=== PATIENT | female | born 1965 | race Caucasian/White ===

== ENCOUNTER → 2019-03-17 17:21 | Outpatient (CLI) | payer OTHER, SELFPAY ==
--- NOTE | 2019-03-17 | DI.MG.S_ITS ---
BILATERAL DIGITAL SCREENING MAMMOGRAM 3D/2D WITH CAD: 03/17/2019 CLINICAL: Routine screening. Family history of breast cancer. Comparison is made to exams dated: 12/28/2015 mammogram, 12/26/2016 mammogram, and 02/26/2018 mammogram - [facility]. The tissue of both breasts is heterogeneously dense. This may lower the sensitivity of mammography. Current study was also evaluated with a Computer Aided Detection (CAD) system. There is an oval focal asymmetry in the left breast at 1 o'clock posterior depth. No other significant masses, calcifications, or other findings are seen in either breast. IMPRESSION: INCOMPLETE: NEEDS ADDITIONAL IMAGING EVALUATION The oval focal asymmetry in the left breast likely represents a cyst and is indeterminate. Additional views with possible ultrasound are recommended. This exam was interpreted at Station ID: [id number]. NOTE: For mammograms, a report in lay terms will be sent to the patient. Approximately 15% of breast malignancies will not be visualized mammographically. In the management of a palpable breast mass, a negative mammogram must not discourage biopsy of a clinically suspicious lesion. Electronically Signed By: Talia Phillips M.D. lk/:03/18/2019 08:55:49 letter sent: Additional Imaging Needed ACR BI-RADS Category 0: Incomplete [id number]
== END ==
DX: Z12.31 Encounter for screening mammogram for malignant neoplasm of breast (principal); Z80.3 Family history of malignant neoplasm of breast
CPT/HCPCS: 77063; 77067

== ENCOUNTER → 2019-04-09 14:06 | Outpatient (CLI) | payer OTHER, SELFPAY ==
--- NOTE | 2019-04-09 | DI.MG.S_ITS ---
UNILATERAL LEFT DIGITAL DIAGNOSTIC MAMMOGRAM 3D/2D WITH ADDITIONAL VIEWS: 04/09/2019 CLINICAL: Additional evaluation requested from prior study. Comparison is made to exams dated: 03/17/2019 mammogram - [facility], 02/26/2018 mammogram, and 12/26/2016 mammogram - [facility]. The tissue of left breast is heterogeneously dense. This may lower the sensitivity of mammography. There is a 1.5 cm oval low density mass with an obscured and circumscribed margin in the left breast at 2 o'clock middle depth. No other significant masses or calcifications are seen in the breast. IMPRESSION: INCOMPLETE: NEEDS ADDITIONAL IMAGING EVALUATION The 1.5 cm oval low density mass in the left breast is indeterminate. An ultrasound is recommended. This exam was interpreted at Station ID: [id number]. NOTE: For mammograms, a report in lay terms will be sent to the patient. Approximately 15% of breast malignancies will not be visualized mammographically. In the management of a palpable breast mass, a negative mammogram must not discourage biopsy of a clinically suspicious lesion. Electronically Signed By: Christian boo/magali:04/09/2019 14:46:08 ACR BI-RADS Category 0: Incomplete [id number]
--- NOTE | 2019-04-09 14:12 | DI.US.S_ITS ---
LIMITED ULTRASOUND OF LEFT BREAST AND AXILLA: 04/09/2019 CLINICAL: Patient returns today to evaluate a density in the left breast. Comparison is made to exams dated: 04/09/2019 mammogram, 03/17/2019 mammogram - [facility], 02/26/2018 mammogram, 12/26/2016 mammogram, and 12/28/2015 mammogram - [facility]. Color flow and real-time ultrasound of the left breast 1-2 o'clock, and axilla regions were performed on the areas of interest. There is a 1.1 cm x 0.7 cm x 1.4 cm oval cyst in the left breast at 1 o'clock posterior depth. This oval cyst is hypoechoic with internal echoes and a fluid-debris level. This correlates with mammography findings. Color flow imaging demonstrates that there is no vascularity present. No significant abnormalities were seen sonographically in the left axilla. IMPRESSION: PROBABLY BENIGN The 1.1 cm x 0.7 cm x 1.4 cm oval cyst in the left breast is consistent with a complicated cyst and is probably benign. A follow-up ultrasound in 6 months is recommended. A follow-up ultrasound in 6 months is recommended to demonstrate stability. This exam was interpreted at Station ID: [id number]. Electronically Signed By: Christian boo/:04/09/2019 15:26:24 letter sent: Followup Recommended Ultrasound BI-RADS: 3 Probably benign
== END ==
PROVIDERS: PCP Nurse Practitioner Family; Visit Provider Family Medicine
DX: R92.8 Other abnormal and inconclusive findings on diagnostic imaging of breast (principal); N60.02 Solitary cyst of left breast
CPT/HCPCS: 76642; 77065; G0279

== ENCOUNTER → 2019-10-15 10:45 | Outpatient (CLI) | payer OTHER, SELFPAY ==
--- NOTE | 2019-10-15 10:46 | DI.US.S_ITS ---
LIMITED ULTRASOUND OF LEFT BREAST: 10/15/2019 CLINICAL: 6 month follow-up of cysts. Comparison is made to exams dated: 04/09/2019 ultrasound, 04/09/2019 mammogram, 03/17/2019 mammogram - [facility], 02/26/2018 mammogram, and 12/26/2016 mammogram - [facility]. Real-time and Doppler ultrasound of the left breast 1-2 o'clock region were performed on the areas of interest. Ward scale images of the real-time examination were reviewed. There is a 1.5 cm x 0.8 cm x 1.2 cm oval cyst in the left breast at 1 o'clock middle depth. This oval cyst is hypoechoic with internal echoes and posterior acoustic enhancement. This abnormality is not significantly changed and correlates with mammography findings. Color flow imaging demonstrates that there is no vascularity present. IMPRESSION: PROBABLY BENIGN The 1.5 cm x 0.8 cm x 1.2 cm oval cyst in the left breast is consistent with a complicated cyst and is probably benign. Follow-up ultrasound in 6 months is recommended. A follow-up ultrasound in 6 months is recommended to demonstrate stability. Patient will also be due for followup mammography at that time. This exam was interpreted at Station ID: [id number]. Electronically Signed By: Christian boo/:10/15/2019 11:22:53 letter sent: Followup Recommended Ultrasound BI-RADS: 3 Probably benign
== END ==
PROVIDERS: PCP Nurse Practitioner Family; Referring Provider Nurse Practitioner Family; Visit Provider Nurse Practitioner Family
DX: R92.8 Other abnormal and inconclusive findings on diagnostic imaging of breast (principal); N60.02 Solitary cyst of left breast
CPT/HCPCS: 76642

== ENCOUNTER → 2019-12-04 07:34 | Outpatient (CLI) | payer OTHER, SELFPAY ==
[2019-12-04 08:05] LABS: Hemoglobin 13.4 g/dL (12.0-16.0); Mean Corpuscular HGB Conc 33.5 % (30-36); Mean Corpuscular Hemoglobin 31.5 PG (26-34); Mean Corpuscular Volume 94.2 fL (80-100); Platelet Count 198 X10^3/uL (150-400); Red Blood Cell Count 4.25 X10^6/uL (4.0-5.2); White Blood Cell Count 5.5 X10^3/uL (4.5-11.0)
[2019-12-04 08:15] LABS: Alanine Aminotransferase 34 IU/L (<35); Albumin 4.5 g/dL (3.5-5.0); Albumin Globulin Ratio 1.7 (1.0-2.8); Alkaline Phosphatase 73 U/L (38-126); Aspartate Aminotransferase 37 IU/L (14-36); BUN Creatinine Ratio 26.5 (6-22); Bilirubin Total 0.7 mg/dL (0.2-1.3); Blood Urea Nitrogen 18 mg/dL (7-17); Calcium 9.4 mg/dL (8.4-10.2); Carbon Dioxide 27 mmol/L (22-32); Chloride 105 mmol/L (98-107); Cholesterol 248 mg/dL (140-199); Estimated Glomerular Filt Rate > 60.0 mL/min (>60); Globulin 2.7 g/dL (1.7-4.1); Glucose 106 mg/dL (70-100); HDL Cholesterol 58 mg/dL (40-60); HEMOLYSIS < 15 (0-50); LDL Cholesterol Calculated 160 mg/dL (<100); Potassium 4.1 mmol/L (3.4-5.1); Sodium 138 mmol/L (137-145); Total Protein 7.2 g/dL (6.3-8.2); Triglycerides 150 mg/dL (35-150)
[2019-12-04 09:04] LABS: Thyroid Stimulating Hormone 0.978 uIU/mL (0.47-4.68)
== END ==
PROVIDERS: PCP Nurse Practitioner Family; Referring Provider Nurse Practitioner Family; Visit Provider Nurse Practitioner Family
DX: Z00.00 Encounter for general adult medical examination without abnormal findings (principal); Z13.6 Encounter for screening for cardiovascular disorders; E03.9 Hypothyroidism, unspecified
CPT/HCPCS: 36415; 80053; 80061; 84439; 84443; 85027

== ENCOUNTER → 2020-02-25 09:52 | Outpatient (CLI) | payer OTHER, SELFPAY ==
[2020-02-25 10:22] LABS: Add Manual Diff / Slide Review NO; Basophils Absolute Auto 0 /uL (0-100); Basophils Percent Auto 0.2 % (0-2); Eosinophils Absolute Auto 100 /uL (0-450); Hematocrit 41.9 % (36-46); Hemoglobin 14.2 g/dL (12.0-16.0); Lymphocytes Absolute Auto 1300 /uL (1100-4500); Lymphocytes Percent Auto 21.7 % (25-40); Mean Corpuscular Hemoglobin 31.8 PG (26-34); Mean Corpuscular Volume 93.6 fL (80-100); Monocytes Absolute Auto 600 /uL (0-900); Monocytes Percent Auto 9.7 % (3-14); Neutrophils Absolute Auto 4000 /uL (1500-7000); Neutrophils Percent Auto 66.4 % (50-75); Platelet Count 194 X10^3/uL (150-400); Red Blood Cell Count 4.48 X10^6/uL (4.0-5.2); Red Cell Distribution Width 14.1 % (11.6-14.8)
[2020-02-25 10:57] LABS: Alanine Aminotransferase 47 IU/L (<35); Albumin 4.5 g/dL (3.5-5.0); Albumin Globulin Ratio 1.6 (1.0-2.8); Alkaline Phosphatase 81 U/L (38-126); Aspartate Aminotransferase 43 IU/L (14-36); BUN Creatinine Ratio 22.2 (6-22); Bilirubin Total 0.6 mg/dL (0.2-1.3); Blood Urea Nitrogen 16 mg/dL (7-17); Calcium 9.5 mg/dL (8.4-10.2); Carbon Dioxide 32 mmol/L (22-32); Chloride 102 mmol/L (98-107); Estimated Glomerular Filt Rate > 60.0 mL/min (>60); Globulin 2.9 g/dL (1.7-4.1); Glucose 99 mg/dL (70-100); HEMOLYSIS < 15 (0-50); Potassium 4.3 mmol/L (3.4-5.1); Sodium 138 mmol/L (137-145); Total Protein 7.4 g/dL (6.3-8.2)
[2020-02-25 11:27] LABS: Thyroid Stimulating Hormone 0.739 uIU/mL (0.47-4.68)
== END ==
PROVIDERS: PCP Nurse Practitioner Family; Referring Provider Nurse Practitioner Family; Visit Provider Nurse Practitioner Family
DX: Z01.818 Encounter for other preprocedural examination (principal); E03.9 Hypothyroidism, unspecified
CPT/HCPCS: 36415; 80053; 84443; 85025

== ENCOUNTER → 2020-04-03 08:52 | Outpatient (CLI) | payer OTHER, SELFPAY ==
[2020-04-04 20:14] LABS: COVID19 Sendout Not Detected (Not Detect)
== END ==
PROVIDERS: PCP Nurse Practitioner Family; Visit Provider Physician Assistant
DX: Z11.59 Encounter for screening for other viral diseases (principal)
CPT/HCPCS: 87635

== ENCOUNTER 2020-04-06 06:21 | Day surgery (SDC) | payer OTHER, SELFPAY ==
[2020-03-30 08:35] VITALS: BMI 31.7
[2020-04-06] VITALS (16 sets, daily range): BP systolic 106–150; BP diastolic 59–87; PULSE 65–85; RESP 10–20; TEMP 35.9–36.8; O2SAT 93–100; BMI 31.7; BMI 34.5
--- NOTE | 2020-04-06 06:00 | DI.RAD.S_ITS ---
PROCEDURE: XR KNEE RT 1TO2V INDICATIONS: post operative films TECHNIQUE: 2 view(s) of the knee acquired. COMPARISON: None. FINDINGS: Bones: Patient is status post knee joint arthroplasty. Hardware components are in expected positions. Visualized bony structures are intact. Soft tissues: Overlying postoperative changes are noted. IMPRESSION: Normal alignment after right total knee arthroplasty. Dictated by: Juwan Gupta M.D. on 04/06/2020 at 10:30 Approved by: Juwan Gupta M.D. on 04/06/2020 at 10:30
[2020-04-06] MEDS: LACTATED RINGERS 1,000 ML 42 ML IV (06:58)
[2020-04-06] MEDS: ACETAMINOPHEN 325 MG TABLET 975 MG PO (07:14)
[2020-04-06] MEDS: PREGABALIN 75 MG CAPSULE PO (07:17)
--- NOTE | 2020-04-06 07:40 | PM.PREOP ---
Pre-operative Note COVID-19 COVID-19 status: Negative Result date/Date tested (Pos, Neg/Pending): 04/04/20 Interval Note History & Physical reviewed/Exam performed by Physician: Yes Changes to H&P: No
--- NOTE | 2020-04-06 07:41 | PM.OP.1 ---
Operative Date/Time/Diagnoses Date of procedure: 04/06/20 Time of procedure: 09:25 Pre-op diagnosis: Right knee osteoarthritis Post-op diagnosis: same Procedure & Clinicians Procedure: Right total knee arthroplasty Same procedure as scheduled: Yes Indications: The patient presents today for total knee arthroplasty after failure of conservative treatment. The nature of the procedure including the risks and benefits, alternatives, postoperative course and expected outcome were discussed and all questions answered. Consent was obtained. Operative site confirmed and marked. Surgeon: Christian Murillo [employer] Operator: Vasquez Garcia Anesthesia Type: General and Local Operative Notes Closure Type: primary Specimen(s): none sent Prosthetic devices, grafts, tissues, transplants, or devices: Duggan and Nephew Sera BCS: 5 femoral component, 4 tibial component, 10 mm BCS polyethylene tray and 35 x 7.5 mm round patella Applied: implant(s) Estimated Blood Loss (mL): 5 Blood products transfused: none Tourniquet time (min): 58 Procedure in detail: The patient was taken to the operative suite and placed under anesthesia. The patient was given prophylactic antibiotics prior to surgery. The patient was also given tranexamic acid, 1 g, just prior to surgery for postoperative hemostasis. The lateral knee was prepped and the joint injected with 20 mL of 1% Lidocaine with epinephrine. The knee was then prepped and draped in usual sterile fashion. The leg was exsanguinated with an Esmarch dressing and the tourniquet raised to 250 torr. A 15 cm anterior incision was made. Next a medial trivector arthrotomy was made. The extensor mechanism was marked to ensure accurate repair. Initial exposing dissection was carried out medially and laterally. The knee was then flexed and the intramedullary femoral guide xochilt placed. The distal femoral cut was made in 6? of valgus at the +1 position. The femoral size was measured and the appropriate cutting block was then placed and the anterior, posterior and chamfer cuts made. The intramedullary tibial alignment xochilt was then placed. The guide was set to remove approximately 10 mm from the less affected lateral side. The proximal tibial cut was then made with an oscillating saw. All meniscus and bony debris was then removed. Posterior femoral osteophytes removed with a curved osteotome. Flexion extension gaps were checked. There is mild tightness medially which was corrected with percutaneous release of the MCL with an 18 gauge needle. The soft tissues were then injected with a combination of 20 mL of half percent Marcaine with epinephrine and 20 mL of Exparel. The trial components were then placed. The knee was then extended and the patellar thickness was measured and a cut made removing approximately 9 mm of bone. The patella was then sized and drilled. Some excess lateral bone was excised and the patellofemoral ligament released. The knee went into full extension and flexion beyond 130?. There was good medial-lateral balance throughout motion with just slight increased laxity laterally. Patellar tracking was excellent. The trial components were removed and the knee was cleansed with Pulsavac irrigation and dried. The final components were cemented with high viscosity vacuum mixed bone cement with antibiotics. The joint was filled with a dilute Betadine solution. The knee was held in extension and the patellar clamped until the cement was adequately cured. The knee was then irrigated. The extensor mechanism was closed with 5 interrupted #1 Vicryl sutures and a running Quill suture at approximately 90 degrees of flexion. The joint was then injected with a combination of 1 g of tranexamic acid and 20 mL of quarter percent Marcaine with epinephrine. The subcutaneous tissue was closed with 2 0 Vicryl. The skin was closed with absorbable subcuticular sutures and surgical adhesive. An Aquacel dressing and Bhupinder wrap were then applied. The patient tolerated the procedure well and was returned to recovery room in good condition. Post-operative Condition: stable Disposition: PACU Plan for aftercare: [facility] Protocol.
[2020-04-06] MEDS: CEFAZOLIN 2 GM/100 ML FROZ.PIGGY IV ×3 (07:55→23:43)
--- NOTE | 2020-04-06 08:24 | SUR.OPER ---
Supine on padded OR bed. Pillow under head, arms secured on padded armboards <90 degree abduction. Safety belt across torso. Non-operative leg secured with tape over blanket over lower leg. Operative leg secured in DeMayo/Ramiro positioner. Foam padded brace at thigh of operative leg.
[2020-04-06] MEDS: BUPIVACAINE 0.25% W/ EPI (PF) 40 ML, BUPIVACAINE LIPOSOME 266 MG, SODIUM CHLORIDE 0.9% ... INJ (08:37)
[2020-04-06] MEDS: BUPIVACAINE 0.25% W/ EPI (PF) 20 ML, TRANEXAMIC ACID 1,000 MG, SODIUM CHLORIDE 0.9% 10 ML INJ (08:39)
[2020-04-06] MEDS: SODIUM CHLORIDE IRRIG SOLUTION 250 ML, POVIDONE-IODINE SPONGE STICKS 1 APPLIC IRR (08:41)
[2020-04-06] MEDS: LIDOCAINE 1% W/EPI 20 ML INJ (08:43)
[2020-04-06] MEDS: HYDROMORPHONE 2 MG INJ IV ×2 (09:51→10:09)
[2020-04-06] MEDS: hydrOXYzine 50 MG/ML INJ 25 MG IM (09:56)
[2020-04-06] MEDS: OXYCODONE IR 5 MG TABLET PO ×3 (09:58→20:48)
--- NOTE | 2020-04-06 10:20 | SUR.PHASEI ---
0939 Received to PACU after general/spinal anesthesia. Airway patent, self maintained. Report from JOHANNE Ochoa and Dr Osorio. 1020 - , Ray, updated on status and room assignment of 217.
--- NOTE | 2020-04-06 10:51 | SUR.PHASEI ---
Pt transferred to room 217. Belongings bag with pt. Received in room by JOHANNE Fournier. Bedside handoff done.
[2020-04-06] MEDS: LACTATED RINGERS 1,000 ML 100 ML IV ×2 (11:46→20:50)
[2020-04-06] MEDS: IBUPROFEN 400 MG TABLET PO ×4 (12:31→23:42)
[2020-04-06] MEDS: ACETAMINOPHEN 325 MG TABLET 650 MG PO ×2 (15:58→20:48)
--- NOTE | 2020-04-06 16:58 | PT.IIE ---
Current Diagnoses Unilateral primary osteoarthritis, right knee (04/06/20) Surgery Performed Operation Date: 04/06/20 07:45 Actual Procedures p Total Knee Arthroplasty(Right) - Christian Murillo MD Surgical History (Last Updated 03/30/20 @ 09:10 by Arianna Parry RN) Anesthesia (Resolved) History of carpal tunnel surgery of left wrist (Resolved ~02/2017) History of carpal tunnel surgery of right wrist (Resolved ~03/2017) History of colonoscopy (Acute) History of knee surgery (Resolved ~11/2007) Vaginal delivery (Resolved) Medical History (Last Updated 03/30/20 @ 09:18 by Arianna Parry RN) Carpal tunnel syndrome (Chronic ~2016) Elevated liver enzymes (Acute) Hypothyroidism (Chronic ~1994) Mixed hyperlipidemia (Acute 11/2019) Osteoarthritis (Acute) Preoperative clearance (Acute) Rheumatoid arthritis (Chronic ~2016) Physical Therapy Inpatient Evaluation/Re-Eval M1 PT/OT-IP Prior Functional Status Start: 04/06/20 13:05 Freq: NEEDED Status: Active Protocol: Document 04/06/20 16:05 DE (Rec: 04/06/20 16:45 DE [id number]) Medical Review Prior Functional Status Medical History Reviewed Yes Diet/Fluid Consistency Regular Communication WNL. No deficits noted. Able to make needs known. Mobility and Gait IND for all mobility and amb without AD or limitations before R knee pain. The knee pain started to limit her walking ~2 years ago. Pt was unable to walk more than 20 min. Pt was able to finish grocery shopping but had to use a cart. Activities of Daily Living and IADL's IND for all ADLs and IADLs at baseline. Social History Household Members spouse Living Arrangements House Number of Floors (Floors) Two Floors Number of Stairs To Enter/Railing? 0 KEENAN. Everything she will need is on the main floor. Home Environment Standard Height Toilet,Walk in Shower Home Equipment Front Wheel Walker,Straight Cane,Bedside Commode,Shower Seat with Backrest Employment Status Unemployed Additional Social History Comment Pt's is retired and will be available to help her full-time if needed. M2 PT-IP Current Condition Start: 04/06/20 13:05 Freq: NEEDED Status: Active Protocol: Document 04/06/20 16:05 DE (Rec: 04/06/20 16:45 DE [id number]) Physical Therapy Current Condition Current Condition Evaluation Date 04/06/20 Treatment Diagnosis R TKA; Difficulty with walking Onset Date 04/06/20 Weight Bearing Status Weight Bearing Status Weight Bear as Tolerated M3 PT-IP Subjective Start: 04/06/20 13:05 Freq: NEEDED Status: Active Protocol: Document 04/06/20 16:05 DE (Rec: 04/06/20 16:45 DE [id number]) Subjective Physical Therapy Visit Type Type Initial Evaluation Visit Start Time 15:12 Visit Stop Time 15:50 Total Visit Minutes 38 Notes SPT Christian led the session under direct supervision of PT Xavier throughout the entire session. Pt's was also present during the session. Number of DINKER Visits 0 Physical Therapy Visit Comments Patient Comments Pt is agreeable to do PT. Patient Goals To return to home. M4 PT-IP Mobility and Gait Start: 04/06/20 13:05 Freq: NEEDED Status: Active Protocol: Document 04/06/20 16:05 DE (Rec: 04/06/20 16:45 DE [id number]) PT-Bed Mobility Assessment Supine to Sit Supine to Sit Contact Guard Assistance Scooting Scooting to Edge of Bed Contact Guard Assistance PT-Transfer Assessment Sit to and From Stand Sit to and from Stand Contact Guard Assistance Equipment Transfer Assistive Device Gait Belt,Front Wheeled Walker Orthotic/Prosthetic Devices or Brace: No Transfers Transfer Destination Chair Transfer Technique Stand Step Pivot Transfer Ability Level of Assist Contact Guard Assistance Comments Mobility Comments Pt was lying supine in bed with elevated HOB as PT and SPT arrived. BP was 139/81. Pt completed supine to sit at R side EOB with CGA and use of BUE to push off the bed. Pt had difficulty with swininging her RLE off the bed but was able to scoop it under with her LLE after she was instructed to do so. Pt then performed sit to interventional nurse staggered stance with most of weight through her LLE, requiring CGA and FWW. She was able to slowly put more weight onto her RLE. After standing for ~1 min, pt amb ~8 ft to the toilet and sat down on the toilet with CGA, FWW, and grab bar near toilet. Initially pt was hopping with her LLE but she was able to walk more smoothly after a couple steps. Pt demonstrated step-to gait pattern with decreased stride length, decreased feet clearance, and decreased gait speed. Pt c/o of pain on the R wrist, where the IV needle was in when she was using the FWW. After toileting, pt stood up and amb ~10 ft to the sink with CGA and FWW. After washing hands, pt amb ~5 ft to the chair and sat down. Call light placed within reach. Pt's remained in the room. Gait Assessment Gait Gait Assistance Required: Contact Guard Assist Distance (Feet) 10 Able to Maintain Weight Bearing Status Yes During Gait Assistive Devices Assistive Device Gait Belt,Front Wheeled Walker Orthotic/Prosthetic Devices or Brace: No Gait Deviations General Gait Pattern Antalgic,Decreased Stride Length,Decreased Feet Clearance Factors Limiting Gait Function Factors Limiting Gait Function Decreased Activity Tolerance, Decreased Strength,Limited Range of Motion,Pain,Poor Balance Comments Gait Comments See mobility comments. Stair Climbing Assessment Comments Stair Climbing Comments Not assessed. PT-Balance Assessment Sitting Balance and Reactions Static Sitting Balance Ability Normal Dynamic Sitting Balance Ability Normal Standing Balance and Reactions Static Standing Balance Ability Normal Dynamic Standing Balance Ability Good M5 PT-IP Objective Assessments Start: 04/06/20 13:05 Freq: NEEDED Status: Active Protocol: Document 04/06/20 16:05 DE (Rec: 04/06/20 16:45 [place] [id number]) Orientation Orientation/Cognition Level of Alertness Alert Orientation Name,Age,Birthday,Month,Date, Year,Day of Week,Place, Situation Language Function Ability No Deficits Noted Safety Awareness Understands Safety Issues Memory Description No Deficits Noted Gross Range of Motion Lower Extremity ROM Assessment Right Impaired Strength Lower Extremity Strength Assessment Right Impaired Coordination Assessment Gross Coordination Gross Coordination WNL Sensation Assessment Sensation Gross Sensation WNL Light Touch Intact Muscle Tone Muscle Tone WNL Yes M6 PT-IP Treatment Start: 04/06/20 13:05 Freq: NEEDED Status: Active Protocol: Document 04/06/20 16:05 DE (Rec: 04/06/20 16:45 [place] [id number]) Physical Therapy Treatment Exercises Exercises Ankle Pumps,Gluteal Sets,Quad Sets,Heel Slides Education Education Provided Precautions,Weight Bearing Status,Post-Op Packet,Safety M7 PT-IP Assessment and Plan Start: 04/06/20 13:05 Freq: NEEDED Status: Active Protocol: Document 04/06/20 16:05 DE (Rec: 04/06/20 16:45 DE [id number]) PT Summary Assessment and Plan Potential Rehabilitation Potential Good Status of Condition at Evaluation Stable Summary Impairments Pain,ROM,Strength,Balance,Bed Mobility,Transfers,Gait, Activity Tolerance Assessment Summary This is a low complexity evaluation for a 54 yo female, Analia, s/p R TKA POD0. PLOF= IND for all mobility, amb, and ADLs without any AD or limitations. CLOF= CGA and FWW for all mobility, transfers, and amb. Pt has good family support and no steps to climb at home. Pt will need to improve amb distance and activity tolerance before d/c. PT anticipates p/t will d/c home with family assistance and FWW once medically stable. Pt will benefit from outpatient PT to improve her knee strength and ROM as well as balance. Goals Bed Mobility Goal Standby Assistance Transfer Goal Standby Assistance,Front Wheeled Walker Gait Goal Standby Assistance,Front Wheel Walker Gait Distance 100 Days to Meet Goals 3 Frequency of Treatment Frequency Of Treatment Twice a Day Treatment Plan Physical Therapy Treatment Plan Bed Mobility Training,Transfer Training,Gait Training, Therapeutic Exercise,Balance Retraining,Post Op Education, Discharge Planning,Hot or Cold Pack Other Recommendations and Next Treatment Mobility as tolerated. Focus Recommendations To Nursing Amount of Assist Needed 1 Person Assist Discharge Recommendations PT Discharge Recommendations Home with Assistance, Outpatient PT Transportation Needs at Discharge Private Vehicle This evaluation noted is written by SPT Christian Hayes. It has been reviewed and approved by PT Edilberto Norris
--- NOTE | 2020-04-06 19:08 | PC.NURSE ---
Patient has been resting in bed most of the shift. Up to the chair w/PT but stayed in the chair for only about one hour. Pain has been controlled well with oxycodone. Patient has been A&O, calm and cooperative.
[2020-04-06] MEDS: DOCUSATE 100 MG CAPSULE PO (20:48)
[2020-04-06] MEDS: ASPIRIN EC 81 MG TABLET PO (20:48)
[2020-04-07] VITALS: BP 117/63; PULSE 69; RESP 18; TEMP 36.2; O2SAT 96
[2020-04-07] MEDS: OXYCODONE IR 5 MG TABLET PO ×4 (02:47→13:32)
[2020-04-07] MEDS: IBUPROFEN 400 MG TABLET PO ×3 (03:06→13:31)
[2020-04-07 05:31] LABS: Hematocrit 36.7 % (36-46)
[2020-04-07 05:40] VITALS: BP 116/66; PULSE 76; RESP 16; TEMP 36.7; O2SAT 98
[2020-04-07] MEDS: LEVOTHYROXINE 137 MCG TABLET PO (06:01)
--- NOTE | 2020-04-07 07:42 | P.DS_ITS ---
History of Present Illness History of Present Illness Date Patient Seen: 04/07/20 Time Patient Seen: 07:42 Chief complaint: Right Total Knee Arthroplasty Narrative: Pain is mild. No nausea or vomiting. No fever or chills. is home to assist her. Discharge Providers Provider Discharge Date: 04/07/20 Primary care physician: MIKE Leung Consults: 04/06/20 11:05 Consult to Discharge Planning Routine Comment: Consult to Physical Therapy Evaluate & Treat Comment: Physician Instructions: postop TKA protocol Consult to Respiratory Therapy Evaluate & Treat Comment: Physician Instructions: Evaluate and treat Discharge provider: Vasquez Garcia PA-C Summary Hospital Course Discharge Diagnosis: Right knee osteoarthritis Hospital Course: rocedure: Right total knee arthroplasty Same procedure as scheduled: Yes Indications: The patient presents today for total knee arthroplasty after failure of conservative treatment. The nature of the procedure including the risks and benefits, alternatives, postoperative course and expected outcome were discussed and all questions answered. Consent was obtained. Operative site confirmed and marked. Surgeon: Christian Murillo Insulation Machine Operator: Vasquez Garcia Anesthesia Type: General and Local Operative Notes Closure Type: primary Specimen(s): none sent Prosthetic devices, grafts, tissues, transplants, or devices: Duggan and Nephew Sera BCS: 5 femoral component, 4 tibial component, 10 mm BCS polyethylene tray and 35 x 7.5 mm round patella Applied: implant(s) Estimated Blood Loss (mL): 5 Blood products transfused: none Tourniquet time (min): 58 Patient admitted to the hospital for right total knee arthroplasty. Patient consented to the same. Patient taken to the operating room underwent right total knee arthroplasty. Patient is back in her room recovering well as in stable condition. Exam Vital Signs (past 8 hours): - 04/07/20 00:00 04/07/20 05:40 Temperature 97.2 F L 98.0 F Pulse Rate 69 76 Respiratory Rate 18 16 Blood Pressure 117/63 116/66 Pulse Oximetry 96 98 Oxygen Delivery Method Room Air Oxygen Flow Rate 0 Narrative Exam Narrative: 54-year-old female resting comfortably in bed in no apparent distress. Right knee dressing is clean, dry and intact. Motor functions intact distally. Both legs are warm and dry. Sensation grossly intact to light touch. Objective Labs Result Diagrams: 04/07/20 05:15 Labs: Laboratory Results - last 24 hr 04/07/20 05:15 Hgb 12.0 Hct 36.7 Discharge Assessment & Plan Assessment and Plan Assessment: Patient progressing as expected status post right total knee arthroplasty Plan of Treatment: Discharge home today in stable condition. Discharge Plan Discharge Plan Patient Disposition: Home Discharge orders & Medications Discharge Orders: Discharge (Order); Ordered 04/07/20 Ordered By: Vasquez Garcia Prescriptions: New acetaminophen 325 mg Tablet 650 mg PO TID Qty: 60 RF: 0 aspirin 81 mg Tablet,Delayed Release (Dr/Ec) 81 mg PO BID Qty: 60 RF: 0 ibuprofen 400 mg Tablet 400 mg PO Q4H Qty: 60 RF: 0 Continued levothyroxine 137 mcg tablet 137 mcg PO DAILY Qty: 90 RF: 3 omega-3 fatty acids [Fish Oil Concentrate] 1,000 mg capsule 2,000 mg PO DAILY RF: 0 cholecalciferol (vitamin D3) 50 mcg (2,000 unit) capsule 50 mcg PO DAILY RF: 0 methotrexate sodium 2.5 mg tablet 10 mg PO QWEEK RF: 0 Simponi ARIA 12.5 mg/mL solution 12.5 mg IV Q2M RF: 0 Women's Multivitamin 18 mg iron-400 mcg-500 mg tablet 1 tab PO DAILY RF: 0 folic acid 1 mg Tablet 1 mg PO DAILY RF: 0 turmeric 400 mg Capsule 1,500 mg PO Q3W RF: 0 Discontinued aspirin [Adult Aspirin Regimen] 81 mg tablet,delayed release (DR/EC) 81 mg PO DAILY RF: 0 naproxen sodium [Aleve] 220 mg Capsule 220 - 440 mg PO DAILY RF: 0 Follow up/Referrals: Conrad Nolasco ARNP [Primary Care Provider] - Christian Murillo MD [Physician] - (2 weeks) Diet/Activity/Treatments Diet: Diet as Tolerated Activity: WBAT Cold/Heat Therapy: ice as needed Skin/Wound/Dressing Care Report to your healthcare provider any signs of infection, such as:: chills, fever, increased pain, unusual drainage and unusual redness Dressing: Keep clean and dry Visit Report/Discharge Packet Instructions: DI for Knee Replacement Stand Alone Forms: Surgery Discharge Discharge Data Primary Care Provider: Conrad Nolasco Attending Provider: Christian Murillo
[2020-04-07 08:00] VITALS: BP 120/67; PULSE 77; RESP 16; TEMP 36.8; O2SAT 98
[2020-04-07] MEDS: ACETAMINOPHEN 325 MG TABLET 650 MG PO ×2 (09:46→13:32)
[2020-04-07] MEDS: ASPIRIN EC 81 MG TABLET PO (09:46)
[2020-04-07] MEDS: DOCUSATE 100 MG CAPSULE PO (09:49)
--- NOTE | 2020-04-07 09:50 | PT.IPTN ---
Current Diagnoses Unilateral primary osteoarthritis, right knee (04/06/20) Surgery Performed Operation Date: 04/06/20 07:45 Actual Procedures p Total Knee Arthroplasty(Right) - Christian Murillo MD Physical Therapy Treatment Note M2 PT-IP Current Condition Start: 04/06/20 13:05 Freq: NEEDED Status: Active Protocol: Document 04/06/20 16:05 DE (Rec: 04/06/20 16:45 DE [id number]) Physical Therapy Current Condition Current Condition Evaluation Date 04/06/20 Treatment Diagnosis R TKA; Difficulty with walking Onset Date 04/06/20 Weight Bearing Status Weight Bearing Status Weight Bear as Tolerated M3 PT-IP Subjective Start: 04/06/20 13:05 Freq: NEEDED Status: Active Protocol: Document 04/07/20 09:21 KS (Rec: 04/07/20 14:37 KS [id number]) Subjective Physical Therapy Visit Type Type Treatment Note Visit Start Time 09:21 Visit Stop Time 09:50 Total Visit Minutes 29 Number of MATERIAL CONTROLLER Visits 1 Physical Therapy Visit Comments Patient Comments Pt is agreeable to do PT. Patient Goals To return to home. Therapy Pain Assessment Pain When Pain Assessed During Mobility Pain Present Pain Present Pain Reported Location right knee Intensity 8 Scale Used Numeric (0 - 10) Description Sharp,Tender,Tightness Pain Behaviors Guarding,Wincing Pain Management Techniques Elevation,Modification of Treatment,Re-positioning M4 PT-IP Mobility and Gait Start: 04/06/20 13:05 Freq: NEEDED Status: Active Protocol: Document 04/07/20 09:21 KS (Rec: 04/07/20 14:37 KS [id number]) PT-Bed Mobility Assessment Supine to Sit Supine to Sit Contact Guard Assistance Sit to Supine Sit to Supine Contact Guard Assistance Scooting Scooting to Edge of Bed Contact Guard Assistance PT-Transfer Assessment Sit to and From Stand Sit to and from Stand Contact Guard Assistance Equipment Transfer Assistive Device Gait Belt,Front Wheeled Walker Orthotic/Prosthetic Devices or Brace: No Transfers Transfer Destination Chair Transfer Technique pt ambulated w/ FWW Transfer Ability Level of Assist Contact Guard Assistance Comments Mobility Comments Pt in bed upon arrival from therapy. Pt CGA for sup<>sit w / gaitbelt to assist RLE out of bed, CGA for scooting to EOB. CGa for sit<>stand w/ cues for hand placement and sequencing. Pt c/o increased pain when sit<>stand 01/03, she then ambulated ~15 ft w/ FWW CGA and c/o nausea and requested to go back to bed. CGA for sit<>sup and repositioning in bed. Pt left in bed w/ RN in room. Gait Assessment Gait Gait Assistance Required: Contact Guard Assist Distance (Feet) 15 Able to Maintain Weight Bearing Status Yes During Gait Assistive Devices Assistive Device Gait Belt,Front Wheeled Walker Orthotic/Prosthetic Devices or Brace: No Gait Deviations General Gait Pattern Antalgic,Decreased Stride Length,Decreased Feet Clearance Factors Limiting Gait Function Factors Limiting Gait Function Decreased Activity Tolerance, Decreased Strength,Limited Range of Motion,Pain,Poor Balance Comments Gait Comments See mobility comments. Stair Climbing Assessment Comments Stair Climbing Comments Not assessed. PT-Balance Assessment Sitting Balance and Reactions Static Sitting Balance Ability Normal Dynamic Sitting Balance Ability Normal Standing Balance and Reactions Static Standing Balance Ability Normal Dynamic Standing Balance Ability Good M5 PT-IP Objective Assessments Start: 04/06/20 13:05 Freq: NEEDED Status: Active Protocol: Document 04/06/20 16:05 DE (Rec: 04/06/20 16:45 DE [id number]) Orientation Orientation/Cognition Level of Alertness Alert Orientation Name,Age,Birthday,Month,Date, Year,Day of Week,Place, Situation Language Function Ability No Deficits Noted Safety Awareness Understands Safety Issues Memory Description No Deficits Noted Gross Range of Motion Lower Extremity ROM Assessment Right Impaired Strength Lower Extremity Strength Assessment Right Impaired Coordination Assessment Gross Coordination Gross Coordination WNL Sensation Assessment Sensation Gross Sensation WNL Light Touch Intact Muscle Tone Muscle Tone WNL Yes M6 PT-IP Treatment Start: 04/06/20 13:05 Freq: NEEDED Status: Active Protocol: Document 04/07/20 09:21 KS (Rec: 04/07/20 14:37 WA [id number]) Physical Therapy Treatment Exercises Exercises Ankle Pumps,Gluteal Sets,Quad Sets,Heel Slides Education Education Provided Precautions,Weight Bearing Status,Post-Op Packet,Safety M7 PT-IP Assessment and Plan Start: 04/06/20 13:05 Freq: NEEDED Status: Active Protocol: Document 04/07/20 09:21 KS (Rec: 04/07/20 14:37 KS [id number]) PT Summary Assessment and Plan Potential Rehabilitation Potential Good Status of Condition at Evaluation Stable Summary Impairments Pain,ROM,Strength,Balance,Bed Mobility,Transfers,Gait, Activity Tolerance Assessment Summary Pt was limited by pain and nausea this AM. CGA and cues for all bed mobility, transfers, and ambulation w/ FWW. Pt only able to tolerate ~15 ft of ambulation w/ FWW before requesting to sit d/t nausea and 8/10 pain. Pt will require caregiver training prior to d/c home. Goals Bed Mobility Goal Standby Assistance Transfer Goal Standby Assistance,Front Wheeled Walker Gait Goal Standby Assistance,Front Wheel Walker Gait Distance 100 Days to Meet Goals 3 Frequency of Treatment Frequency Of Treatment Twice a Day Treatment Plan Physical Therapy Treatment Plan Bed Mobility Training,Transfer Training,Gait Training, Therapeutic Exercise,Balance Retraining,Post Op Education, Discharge Planning,Hot or Cold Pack Other Recommendations and Next Treatment Mobility as tolerated. Focus Recommendations To Nursing Amount of Assist Needed 1 Person Assist Discharge Recommendations PT Discharge Recommendations Home with Assistance, Outpatient PT Transportation Needs at Discharge Private Vehicle
--- NOTE | 2020-04-07 11:43 | CM.IDA ---
Initial DCP Assessment Note Pt is a 54 yo female, resident of [place], now POD#1 from Rt knee surgery w/ Dr Murillo PCP: Conrad Nolasco Payer: [id number] Reviewed chart, pt discussed in multidisciplinary rounds this morning. Therapy has cleared pt for return home w/family to assist and pt has planned for home, DC order from Ortho has already been initiated this morning. Met w/patient this morning to introduce role. Patient is in good spirits, states she has everything in place to return home w/spouse to assist. 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
--- NOTE | 2020-04-07 13:55 | PT.IPTN ---
Current Diagnoses Unilateral primary osteoarthritis, right knee (04/06/20) Surgery Performed Operation Date: 04/06/20 07:45 Actual Procedures p Total Knee Arthroplasty(Right) - Christian Murillo MD Physical Therapy Treatment Note M2 PT-IP Current Condition Start: 04/06/20 13:05 Freq: NEEDED Status: Active Protocol: Document 04/06/20 16:05 DE (Rec: 04/06/20 16:45 DE [id number]) Physical Therapy Current Condition Current Condition Evaluation Date 04/06/20 Treatment Diagnosis R TKA; Difficulty with walking Onset Date 04/06/20 Weight Bearing Status Weight Bearing Status Weight Bear as Tolerated M3 PT-IP Subjective Start: 04/06/20 13:05 Freq: NEEDED Status: Active Protocol: Document 04/07/20 13:20 KS (Rec: 04/07/20 14:47 KS [id number]) Subjective Physical Therapy Visit Type Type Treatment Note Visit Start Time 13:20 Visit Stop Time 13:55 Total Visit Minutes 35 Notes Pts present for caregiver training. Number of MODULAR SET [employer]W MEMBER Visits 2 Physical Therapy Visit Comments Patient Comments Pt is agreeable to do PT. Patient Goals To return to home. Therapy Pain Assessment Pain When Pain Assessed During Mobility Pain Present Pain Present Pain Reported Location right knee Intensity 4 Scale Used Numeric (0 - 10) Description Sharp,Tender,Tightness Pain Behaviors Guarding,Wincing Pain Management Techniques Elevation,Modification of Treatment,Re-positioning M4 PT-IP Mobility and Gait Start: 04/06/20 13:05 Freq: NEEDED Status: Active Protocol: Document 04/07/20 13:20 KS (Rec: 04/07/20 14:47 KS [id number]) PT-Bed Mobility Assessment Supine to Sit Supine to Sit Contact Guard Assistance Sit to Supine Sit to Supine Contact Guard Assistance Scooting Scooting to Edge of Bed Contact Guard Assistance PT-Transfer Assessment Sit to and From Stand Sit to and from Stand Contact Guard Assistance Equipment Transfer Assistive Device Gait Belt,Front Wheeled Walker Orthotic/Prosthetic Devices or Brace: No Transfers Transfer Destination Bed,Chair Transfer Technique pt ambulated w/ FWW Transfer Ability Level of Assist Contact Guard Assistance Comments Mobility Comments Pt in chair upon arrival from therapy w/ in room for caregiver training. Instructed pts in application of gaitbelt which he was able to complete successfully. Pt sit<>stand CGA provided by and then ambulated ~80 ft w/ FWW CGA w/ cues for equal step length and heel toe walking. Pt relied fairly heavily on BUE to pff weight RLE d/t pain and fearfulness of pain w/ weigh bearing. Pt returned to room and performed bed mobility CGA and cues provided by , she then transferred to chair w/ CGA also by . Pt needed min cues for sequencing when standing. Reviewed LE strengthening exercises which pt states she will complete at home. Pt and state they feel safe to return home. Gait Assessment Gait Gait Assistance Required: Contact Guard Assist,1 Person Assist Distance (Feet) 80 Able to Maintain Weight Bearing Status Yes During Gait Assistive Devices Assistive Device Gait Belt,Front Wheeled Walker Orthotic/Prosthetic Devices or Brace: No Gait Deviations General Gait Pattern Antalgic,Decreased Stride Length,Decreased Feet Clearance Factors Limiting Gait Function Factors Limiting Gait Function Decreased Activity Tolerance, Decreased Strength,Limited Range of Motion,Pain,Poor Balance Comments Gait Comments Pt able to tolerate ~80 ft ambulation w/ FWW and CGA provided by . Min cues for equal step length and heel toe walking. Pts gait improved w/ distance. Stair Climbing Assessment Comments Stair Climbing Comments Not assessed. No stairs at home. PT-Balance Assessment Sitting Balance and Reactions Static Sitting Balance Ability Normal Dynamic Sitting Balance Ability Normal Standing Balance and Reactions Static Standing Balance Ability Normal Dynamic Standing Balance Ability Good M5 PT-IP Objective Assessments Start: 04/06/20 13:05 Freq: NEEDED Status: Active Protocol: Document 04/06/20 16:05 DE (Rec: 04/06/20 16:45 DE [id number]) Orientation Orientation/Cognition Level of Alertness Alert Orientation Name,Age,Birthday,Month,Date, Year,Day of Week,Place, Situation Language Function Ability No Deficits Noted Safety Awareness Understands Safety Issues Memory Description No Deficits Noted Gross Range of Motion Lower Extremity ROM Assessment Right Impaired Strength Lower Extremity Strength Assessment Right Impaired Coordination Assessment Gross Coordination Gross Coordination WNL Sensation Assessment Sensation Gross Sensation WNL Light Touch Intact Muscle Tone Muscle Tone WNL Yes M6 PT-IP Treatment Start: 04/06/20 13:05 Freq: NEEDED Status: Active Protocol: Document 04/07/20 13:20 KS (Rec: 04/07/20 14:47 KS [id number]) Physical Therapy Treatment Exercises Exercises Ankle Pumps,Gluteal Sets,Quad Sets,Heel Slides Education Education Provided Precautions,Weight Bearing Status,Post-Op Packet,Safety Other Treatments Other Treatment Performed Completed caregiver training. M7 PT-IP Assessment and Plan Start: 04/06/20 13:05 Freq: NEEDED Status: Active Protocol: Document 04/07/20 13:20 KS (Rec: 04/07/20 14:47 KS [id number]) PT Summary Assessment and Plan Potential Rehabilitation Potential Good Status of Condition at Evaluation Stable Summary Impairments Pain,ROM,Strength,Balance,Bed Mobility,Transfers,Gait, Activity Tolerance Progress Towards Goals Progressing Toward Goals Assessment Summary Pt showed improved tolerance for ambulation this PM. Completed caregiver training w / pts who was able to provide appropriate assist and apply gait belt. Pt is CGA for all bed mobility and transfers as well as ambulation. Min cues for sequencing during transfers and equal step length during ambulation. Pt and state they feel ready to return home and have all necessary DME. Pt will benefit from outpatient therapy, which she has schedule to begin on Saturday. Goals Bed Mobility Goal Standby Assistance Transfer Goal Standby Assistance,Front Wheeled Walker Gait Goal Standby Assistance,Front Wheel Walker Gait Distance 100 Days to Meet Goals 3 Frequency of Treatment Frequency Of Treatment Twice a Day Treatment Plan Physical Therapy Treatment Plan Bed Mobility Training,Transfer Training,Gait Training, Therapeutic Exercise,Balance Retraining,Post Op Education, Discharge Planning,Hot or Cold Pack Other Recommendations and Next Treatment Mobility as tolerated. Focus Recommendations To Nursing Amount of Assist Needed 1 Person Assist Discharge Recommendations PT Discharge Recommendations Home with Assistance, Outpatient PT Transportation Needs at Discharge Private Vehicle
== END 2020-04-07 14:50 | disposition home or self-care (01) ==
LOC: OR 06:22 → AC 10:53
PROVIDERS: PCP Nurse Practitioner Family; Referring Provider Nurse Practitioner Family; Visit Provider Orthopaedic Surgery
PROC: 0SRC0JZ Replacement of Right Knee Joint with Synthetic Substitute, Open Approach (ICD-10-PCS; CPT 27447; principal; 2020-04-06 07:45)
DX: M17.11 Unilateral primary osteoarthritis, right knee (principal); M06.9 Rheumatoid arthritis, unspecified; E03.9 Hypothyroidism, unspecified
CPT/HCPCS: 27447; 36415; 73560; 85014; 85018; 97116; 97161; 97530; C1776; C9290; J0690; J1100; J1170; J2250; J2405; J2704; J3010; J3410

== ENCOUNTER → 2020-05-06 12:53 | Outpatient (CLI) | payer OTHER, SELFPAY ==
[2020-04-06 11:47] VITALS: BMI 34.5
--- NOTE | 2020-05-06 12:57 | DI.MG.S_ITS ---
BILATERAL DIGITAL DIAGNOSTIC MAMMOGRAM 3D/2D SHORT-TERM FOLLOW-UP: 05/06/2020 CLINICAL: Patient returns for a 6 month follow up of the left breast, due for bilateral exam. Comparison is made to exams dated: 04/09/2019 mammogram, 03/17/2019 mammogram - [facility], and 02/26/2018 mammogram - [facility]. The tissue of both breasts is heterogeneously dense. This may lower the sensitivity of mammography. There is an oval low density mass with an obscured and circumscribed margin in the left breast at 1 o'clock posterior depth. This is increased in size. No other significant masses, calcifications, or other findings are seen in either breast. IMPRESSION: INCOMPLETE: NEEDS ADDITIONAL IMAGING EVALUATION The oval low density mass in the left breast is indeterminate. An ultrasound is recommended. This exam was interpreted at Station ID: [id number]. NOTE: For mammograms, a report in lay terms will be sent to the patient. Approximately 15% of breast malignancies will not be visualized mammographically. In the management of a palpable breast mass, a negative mammogram must not discourage biopsy of a clinically suspicious lesion. Electronically Signed By: Christian boo/magali:05/06/2020 13:22:36 ACR BI-RADS Category 0: Incomplete [id number]
--- NOTE | 2020-05-06 12:57 | DI.US.S_ITS ---
LIMITED ULTRASOUND OF LEFT BREAST: 05/06/2020 CLINICAL: 6 month follow-up of cysts. Comparison is made to exams dated: 05/06/2020 mammogram, 10/15/2019 ultrasound, 04/09/2019 ultrasound, 04/09/2019 mammogram, 03/17/2019 mammogram - [facility], and 02/26/2018 mammogram - [facility]. Color flow and real-time ultrasound of the left breast 1-2 o'clock region were performed on the areas of interest. There is a 1.7 cm x 0.9 cm x 1.1 cm oval cyst with a septated internal wall in the left breast at 1 o'clock middle depth 4 cm from the nipple. This oval cyst is anechoic with a well-defined boundary and posterior acoustic enhancement. This abnormality is increased in size compared to prior studies and correlates with mammography findings. Color flow imaging demonstrates that there is no vascularity present. IMPRESSION: PROBABLY BENIGN The 1.7 cm x 0.9 cm x 1.1 cm oval cyst in the left breast is consistent with a complicated cyst and is probably benign. A follow-up ultrasound in 6 months is recommended. A follow-up ultrasound in 6 months is recommended to demonstrate stability. This exam was interpreted at Station ID: [id number]. Electronically Signed By: Christian boo/:05/06/2020 15:03:59 letter sent: Followup Recommended Ultrasound BI-RADS: 3 Probably benign
[2020-05-06 14:58] LABS: Alanine Aminotransferase 64 IU/L (<35); Albumin 4.4 g/dL (3.5-5.0); Albumin Globulin Ratio 1.6 (1.0-2.8); Alkaline Phosphatase 105 U/L (38-126); Aspartate Aminotransferase 37 IU/L (14-36); Bilirubin Total 0.4 mg/dL (0.2-1.3); Bilirubin Unconjugated 0.3 mg/dL (0.0-1.1); Globulin 2.8 g/dL (1.7-4.1); HEMOLYSIS < 15 (0-50); Total Protein 7.2 g/dL (6.3-8.2)
== END ==
PROVIDERS: PCP Nurse Practitioner Family; Referring Provider Nurse Practitioner Family; Visit Provider Nurse Practitioner Family
DX: R92.8 Other abnormal and inconclusive findings on diagnostic imaging of breast (principal); N60.02 Solitary cyst of left breast; R74.8 Abnormal levels of other serum enzymes
CPT/HCPCS: 36415; 76642; 77066; 80076; G0279

== ENCOUNTER → 2020-05-11 07:46 | Outpatient (CLI) | payer OTHER, SELFPAY ==
[2020-04-06 11:47] VITALS: BMI 34.5
--- NOTE | 2020-05-11 07:47 | DI.US.S_ITS ---
PROCEDURE: US ABDOMEN COMPLETE INDICATIONS: ELEVATED LIVER ENZYMES TECHNIQUE: Real-time scanning was performed of the abdominal and retroperitoneal organs, with image documentation. COMPARISON: None. FINDINGS: Liver: Liver measures 14.9 cm length. There is diffuse heterogeneous echotexture and increased echogenicity. Gallbladder: Multiple gallstones are seen. There is borderline gallbladder wall thickening. The anterior wall the gallbladder demonstrates calcification. No sonographic Aranda sign. Calcified appearance of the anterior gallbladder wall. Biliary ducts: Intrahepatic bile ducts are non-dilated. Extrahepatic bile duct caliber measures 3-5 mm. Normal is 6-7 mm or less in diameter, or 10 mm or less post-cholecystectomy. Pancreas: Not well visualized sonographically Spleen: Spleen is normal in size and homogeneous in echotexture. Kidneys: Kidneys are normal in size and echotexture. Right kidney measures 10.7 cm long; left kidney measures 11.1 cm long. No hydronephrosis or nephrolithiasis. No solid masses. Hypoechoic right interpolar focus measuring 2.5 x 2.5 x 2.0 cm, possibly hypertrophied column of Virgilio seen although cannot entirely exclude mass and recommend ultrasound follow-up. Aorta: Visualized aorta is normal in caliber at less than 3 cm. Iliacs: Proximal common iliac arteries are normal in caliber at less than 2.5 cm. IVC: Intrahepatic inferior vena cava is patent. Miscellaneous: No free abdominal fluid. IMPRESSION: Coarse echogenic liver suggesting diffuse hepatocellular disease/fatty infiltration. Please correlate with LFTs. Cholelithiasis. Possible hypertrophied column of Virgilio seen in the right kidney although cannot entirely exclude mass. Therefore recommend follow-up ultrasound in 6 months to document stability. Dictated by: Arcadio Marvin M.D. on 05/11/2020 at 12:04 Approved by: Arcadio Marvin M.D. on 05/11/2020 at 12:08
[2020-05-11 09:31] LABS: Cholesterol 226 mg/dL (140-199); HDL Cholesterol 57 mg/dL (40-60); LDL Cholesterol Calculated 145 mg/dL (<100); Triglycerides 122 mg/dL (35-150)
[2020-05-12 00:36] LABS: HBsAg Screen Negative (Negative); Hepatitis A Antibody IgM Negative (Negative); Hepatitis B Core Antibody IgM Negative (Negative); Hepatitis C Antibody 0.1 s/co ratio (0.0-0.9)
[2020-05-13 13:43] LABS: Smooth Muscle Antibody 11 Units (0-19)
== END ==
PROVIDERS: PCP Nurse Practitioner Family; Referring Provider Nurse Practitioner Family; Visit Provider Nurse Practitioner Family
DX: R74.8 Abnormal levels of other serum enzymes (principal); E78.2 Mixed hyperlipidemia; K80.20 Calculus of gallbladder without cholecystitis without obstruction
CPT/HCPCS: 36415; 76700; 80061; 80074; 83516

== ENCOUNTER → 2020-08-25 10:33 | Outpatient (CLI) | payer OTHER, SELFPAY ==
[2020-04-06 11:47] VITALS: BMI 34.5
[2020-08-25] MEDS: COVID-19 VACC #1, MRNA(MOD) 100 MCG/0.5 ML VIAL IM (10:42)
== END ==
PROVIDERS: PCP Nurse Practitioner Family; Visit Provider Internal Medicine
DX: Z23 Encounter for immunization (principal)
CPT/HCPCS: 0011A; 91301

== ENCOUNTER → 2020-09-22 10:16 | Outpatient (CLI) | payer OTHER, SELFPAY ==
[2020-04-06 11:47] VITALS: BMI 34.5
[2020-09-22] MEDS: COVID-19 VACC #2, MRNA(MOD) 100 MCG/0.5 ML VIAL IM (10:22)
== END ==
PROVIDERS: PCP Nurse Practitioner Family; Visit Provider Internal Medicine
DX: Z23 Encounter for immunization (principal)
CPT/HCPCS: 0012A; 91301

== ENCOUNTER → 2020-10-06 09:42 | Outpatient (CLI) | payer OTHER, SELFPAY ==
[2020-04-06 11:47] VITALS: BMI 34.5
--- NOTE | 2020-10-06 09:43 | DI.US.S_ITS ---
LIMITED ULTRASOUND OF LEFT BREAST: 10/06/2020 CLINICAL: 6 month follow-up of cysts.left breast. Comparison is made to exams dated: 05/06/2020 ultrasound, 05/06/2020 mammogram, 10/15/2019 ultrasound, 04/09/2019 ultrasound, 04/09/2019 mammogram, and 03/17/2019 mammogram - [facility]. Color flow and real-time ultrasound of the left breast 1 o'clock region were performed on the areas of interest. There is a 1.8 cm x 1 cm x 1.4 cm oval cyst with a septated internal wall in the left breast at 1 o'clock middle depth. This oval cyst is anechoic with a well-defined boundary and posterior acoustic enhancement. This abnormality is progressively slightly increased in size. No discrete internal solid mass component identified. Color flow imaging demonstrates that there is no vascularity present. IMPRESSION: PROBABLY BENIGN The 1.8 cm x 1 cm x 1.4 cm oval cyst in the left breast is consistent with a complicated cyst and is probably benign. Follow-up mammogram and ultrasound in 6 months is recommended. A follow-up mammogram and an ultrasound in 6 months is recommended to demonstrate stability. Patient will be due for mammography of the contralateral breast at that time. This exam was interpreted at Station ID: [id number]. Electronically Signed By: Christian boo/:10/06/2020 13:59:21 letter sent: Followup Recommended Ultrasound BI-RADS: 3 Probably benign
== END ==
PROVIDERS: PCP Nurse Practitioner Family; Referring Provider Nurse Practitioner Family; Visit Provider Nurse Practitioner Family
DX: R92.8 Other abnormal and inconclusive findings on diagnostic imaging of breast (principal); N60.02 Solitary cyst of left breast
CPT/HCPCS: 76642

== ENCOUNTER → 2021-02-08 07:55 | Outpatient (CLI) | payer OTHER, SELFPAY ==
[2020-04-06 11:47] VITALS: BMI 34.5
[2021-02-08 09:52] LABS: Alanine Aminotransferase 37 IU/L (<35); Albumin 4.4 g/dL (3.5-5.0); Albumin Globulin Ratio 1.6 (1.0-2.8); Alkaline Phosphatase 86 U/L (38-126); Aspartate Aminotransferase 36 IU/L (14-36); Bilirubin Total 0.6 mg/dL (0.2-1.3); Blood Urea Nitrogen 17 mg/dL (7-17); Calcium 9.2 mg/dL (8.4-10.2); Carbon Dioxide 31 mmol/L (22-32); Chloride 106 mmol/L (98-107); Cholesterol 159 mg/dL (140-199); Estimated Glomerular Filt Rate > 60.0 mL/min (>60); Globulin 2.8 g/dL (1.7-4.1); Glucose 105 mg/dL (70-100); HDL Cholesterol 60 mg/dL (40-60); HEMOLYSIS < 15 (0-50); LDL Cholesterol Calculated 75 mg/dL (<100); Potassium 4.1 mmol/L (3.4-5.1); Sodium 140 mmol/L (137-145); Total Protein 7.2 g/dL (6.3-8.2); Triglycerides 120 mg/dL (35-150)
== END ==
PROVIDERS: PCP Nurse Practitioner Family; Referring Provider Nurse Practitioner Family; Visit Provider Nurse Practitioner Family
DX: E03.9 Hypothyroidism, unspecified (principal); K76.0 Fatty (change of) liver, not elsewhere classified; E78.2 Mixed hyperlipidemia
CPT/HCPCS: 36415; 80053; 80061; 84443

== ENCOUNTER → 2021-05-04 13:14 | Outpatient (CLI) | payer OTHER, SELFPAY ==
[2020-04-06 11:47] VITALS: BMI 34.5
--- NOTE | 2021-05-04 13:14 | DI.MG.S_ITS ---
BILATERAL DIGITAL DIAGNOSTIC MAMMOGRAM 3D/2D SHORT-TERM FOLLOW-UP: 05/04/2021 CLINICAL: Short term follow up of the left breast, due for bilateral imaging. Comparison is made to exams dated: 05/06/2020 mammogram, 04/09/2019 mammogram, and 03/17/2019 mammogram - [facility]. The tissue of both breasts is heterogeneously dense. This may lower the sensitivity of mammography. There is a 1.6 cm oval focal asymmetry with a circumscribed margin in the left breast at 1 o'clock posterior depth. This is seen in additional views. This is not significantly changed. No other significant masses, calcifications, or other findings are seen in either breast. Mammograms are otherwise stable. IMPRESSION: INCOMPLETE: NEEDS ADDITIONAL IMAGING EVALUATION The 1.6 cm oval focal asymmetry in the left breast is indeterminate. An ultrasound is recommended. This was performed immediately following this exam. This exam was interpreted at Station ID: [id number]. NOTE: For mammograms, a report in lay terms will be sent to the patient. Approximately 15% of breast malignancies will not be visualized mammographically. In the management of a palpable breast mass, a negative mammogram must not discourage biopsy of a clinically suspicious lesion. Electronically Signed By: Karlee morales/:05/04/2021 13:55:59 ACR BI-RADS Category 0: Incomplete [id number]
--- NOTE | 2021-05-04 13:14 | DI.US.S_ITS ---
ULTRASOUND OF LEFT BREAST: 05/04/2021 CLINICAL: 6 month follow-up of cysts. Comparison is made to exams dated: 05/04/2021 mammogram, 10/06/2020 ultrasound, 05/06/2020 ultrasound, 05/06/2020 mammogram, and 10/15/2019 ultrasound - [facility]. Color flow and real-time ultrasound of the left breast were performed. Ward scale images of the real-time examination were reviewed. There is a 1.9 cm x 1.8 cm x 1 cm oval cyst with a septated internal wall in the left breast at 1 o'clock posterior depth 4 cm from the nipple. This oval cyst is hypoechoic with internal echoes. This abnormality is increased in size and correlates with mammography findings. Color flow imaging demonstrates that there is no vascularity present. IMPRESSION: PROBABLY BENIGN The 1.9 cm oval cyst in the left breast is consistent with a complicated cyst, is slighty larger than previous, and is probably benign. A follow-up left ultrasound in 6 months is recommended for reassessment. Findings and recommendations were conveyed to the patient at time of exam. This exam was interpreted at Station ID: [id number]. Electronically Signed By: Karlee morales/:05/04/2021 14:24:28 letter sent: Followup Recommended Ultrasound BI-RADS: 3 Probably benign
== END ==
PROVIDERS: PCP Nurse Practitioner Family; Referring Provider Nurse Practitioner Family; Visit Provider Nurse Practitioner Family
DX: R92.8 Other abnormal and inconclusive findings on diagnostic imaging of breast (principal); N60.02 Solitary cyst of left breast
CPT/HCPCS: 76642; 77066; G0279

== ENCOUNTER → 2021-06-19 09:05 | Outpatient (CLI) | payer OTHER, SELFPAY ==
[2020-04-06 11:47] VITALS: BMI 34.5
[2021-06-19 10:13] LABS: Hematocrit 39.9 % (36-46); Hemoglobin 13.5 g/dL (12.0-16.0); Mean Corpuscular HGB Conc 33.8 % (30-36); Mean Corpuscular Volume 91.6 fL (80-100); Platelet Count 198 X10^3/uL (150-400); Red Blood Cell Count 4.36 X10^6/uL (4.0-5.2); Red Cell Distribution Width 13.8 % (11.6-14.8); White Blood Cell Count 4.6 X10^3/uL (4.5-11.0)
[2021-06-19 10:37] LABS: Alanine Aminotransferase 41 IU/L (<35); Albumin 4.4 g/dL (3.5-5.0); Albumin Globulin Ratio 1.6 (1.0-2.8); Alkaline Phosphatase 78 U/L (38-126); Aspartate Aminotransferase 39 IU/L (14-36); BUN Creatinine Ratio 20.5 (6-22); Bilirubin Total 0.6 mg/dL (0.2-1.3); Blood Urea Nitrogen 16 mg/dL (7-17); Calcium 9.3 mg/dL (8.4-10.2); Carbon Dioxide 30 mmol/L (22-32); Chloride 104 mmol/L (98-107); Cholesterol 153 mg/dL (140-199); Estimated Glomerular Filt Rate > 60.0 mL/min (>60); Globulin 2.8 g/dL (1.7-4.1); Glucose 98 mg/dL (70-100); HDL Cholesterol 59 mg/dL (40-60); HEMOLYSIS < 15 (0-50); LDL Cholesterol Calculated 68 mg/dL (<100); Potassium 4.1 mmol/L (3.4-5.1); Sodium 138 mmol/L (137-145); Total Protein 7.2 g/dL (6.3-8.2); Triglycerides 128 mg/dL (35-150)
== END ==
PROVIDERS: PCP Nurse Practitioner Family; Referring Provider Nurse Practitioner Family; Visit Provider Nurse Practitioner Family
DX: Z00.00 Encounter for general adult medical examination without abnormal findings (principal); K76.0 Fatty (change of) liver, not elsewhere classified; R74.8 Abnormal levels of other serum enzymes; Z13.6 Encounter for screening for cardiovascular disorders; E78.2 Mixed hyperlipidemia
CPT/HCPCS: 36415; 80053; 80061; 85027

== ENCOUNTER → 2021-11-22 09:50 | Outpatient (CLI) | payer OTHER, SELFPAY ==
[2021-11-16 11:54] VITALS: BMI 34.5
--- NOTE | 2021-11-22 09:52 | DI.US.S_ITS ---
LIMITED ULTRASOUND OF LEFT BREAST: 11/22/2021 CLINICAL: 6 month follow-up of cyst. No prior exams were available for comparison. Color flow and real-time ultrasound of the left breast 1 o'clock region were performed. Ward scale images of the real-time examination were reviewed. There is a 2.3 cm x 1.8 cm x 1.1 cm oval cyst with a septated internal wall in the left breast at 1 o'clock posterior depth 4 cm from the nipple. This oval cyst is hypoechoic with internal echoes. This abnormality is increased in size and correlates with mammography findings. Color flow imaging demonstrates that there is no vascularity present. IMPRESSION: PROBABLY BENIGN The 2.3 cm x 1.8 cm x 1.1 cm oval cyst in the left breast is consistent with a complicated cyst and is probably benign. A follow-up mammogram and an ultrasound in 6 months is recommended to demonstrate stability. This exam was interpreted at Station ID: [id number]. Electronically Signed By: Aly Hannah acr/:11/22/2021 11:05:52 letter sent: Followup Recommended Ultrasound BI-RADS: 3 Probably benign
== END ==
PROVIDERS: PCP Registered Nurse Diabetes Educator; Referring Provider Registered Nurse Diabetes Educator; Visit Provider Registered Nurse Diabetes Educator
DX: R92.8 Other abnormal and inconclusive findings on diagnostic imaging of breast (principal); N60.02 Solitary cyst of left breast
CPT/HCPCS: 76642

== ENCOUNTER → 2021-12-30 08:02 | Outpatient (CLI) | payer OTHER, SELFPAY ==
[2021-11-16 11:54] VITALS: BMI 34.5
[2021-12-30 09:29] LABS: Hematocrit 41.6 % (36-46); Hemoglobin 13.9 g/dL (12.0-16.0); Mean Corpuscular HGB Conc 33.3 % (30-36); Mean Corpuscular Hemoglobin 30.3 PG (26-34); Platelet Count 180 X10^3/uL (150-400); Red Blood Cell Count 4.58 X10^6/uL (4.0-5.2); Red Cell Distribution Width 14.3 % (11.6-14.8); White Blood Cell Count 5.3 X10^3/uL (4.5-11.0)
[2021-12-30 09:55] LABS: Alanine Aminotransferase 46 IU/L (<35); Albumin 4.3 g/dL (3.5-5.0); Albumin Globulin Ratio 1.4 (1.0-2.8); Alkaline Phosphatase 82 U/L (38-126); Aspartate Aminotransferase 39 IU/L (14-36); BUN Creatinine Ratio 21.9 (6-22); Bilirubin Total 0.7 mg/dL (0.2-1.3); Blood Urea Nitrogen 16 mg/dL (7-17); Carbon Dioxide 30 mmol/L (22-32); Chloride 103 mmol/L (98-107); Cholesterol 160 mg/dL (140-199); Estimated Glomerular Filt Rate > 60 mL/min (>60); Glucose 100 mg/dL (70-100); HDL Cholesterol 52 mg/dL (40-60); HEMOLYSIS < 15 (0-50); LDL Cholesterol Calculated 83 mg/dL (<100); Potassium 4.3 mmol/L (3.4-5.1); Sodium 138 mmol/L (137-145); Total Protein 7.3 g/dL (6.3-8.2); Triglycerides 125 mg/dL (35-150)
[2021-12-30 10:26] LABS: TSH w/ Reflex to FT4 0.54 uIU/mL (0.47-4.68)
== END ==
PROVIDERS: PCP Registered Nurse Diabetes Educator; Referring Provider Registered Nurse Diabetes Educator; Visit Provider Registered Nurse Diabetes Educator
DX: K76.0 Fatty (change of) liver, not elsewhere classified (principal); E78.2 Mixed hyperlipidemia; E03.9 Hypothyroidism, unspecified; M05.731 Rheumatoid arthritis with rheumatoid factor of right wrist without organ or systems involvement; M05.732 Rheumatoid arthritis with rheumatoid factor of left wrist without organ or systems involvement; R74.8 Abnormal levels of other serum enzymes
CPT/HCPCS: 36415; 80053; 80061; 84443; 85027

== ENCOUNTER → 2022-02-09 10:09 | Outpatient (CLI) | payer OTHER, SELFPAY ==
[2021-11-16 11:54] VITALS: BMI 34.5
== END ==
PROVIDERS: PCP Registered Nurse Diabetes Educator; Visit Provider Registered Nurse
DX: N39.0 Urinary tract infection, site not specified (principal)
CPT/HCPCS: 87086

== ENCOUNTER → 2022-05-16 09:39 | Outpatient (CLI) | payer OTHER, SELFPAY ==
[2021-11-16 11:54] VITALS: BMI 34.5
--- NOTE | 2022-05-16 09:39 | DI.US.S_ITS ---
LIMITED ULTRASOUND OF LEFT BREAST: 05/16/2022 CLINICAL: Patient returns today to evaluate an asymmetry in the left breast. Comparison is made to exams dated: 05/16/2022 mammogram, 11/22/2021 ultrasound, 05/04/2021 ultrasound, 05/04/2021 mammogram, 10/06/2020 ultrasound, and 05/06/2020 ultrasound - [facility]. Color flow and real-time ultrasound of the left breast 1 o'clock region were performed. Ward scale images of the real-time examination were reviewed. There is a 2.3 cm x 1.8 cm x 1.1 cm oval cyst with a septated internal wall in the left breast at 1 o'clock posterior depth 4 cm from the nipple. This oval cyst is hypoechoic with internal echoes. This abnormality is increased in size and correlates with mammography findings. Color flow imaging demonstrates that there is no vascularity present. IMPRESSION: BENIGN There is no sonographic evidence of malignancy. The 2.3 cm x 1.8 cm x 1.1 cm oval cyst in the left breast is benign. Annual screening mammogram recommended. This exam was interpreted at Station ID: [id number]. Electronically Signed By: Hermilo Elliott M.D. jr/:05/16/2022 10:47:20 letter sent: Normal Exam Ultrasound BI-RADS: 2 Benign
--- NOTE | 2022-05-16 09:39 | DI.MG.S_ITS ---
BILATERAL DIGITAL DIAGNOSTIC MAMMOGRAM 3D/2D SHORT-TERM FOLLOW-UP: 05/16/2022 CLINICAL: Short term follow up of the left breast, due for bilateral imaging. Comparison is made to exams dated: 05/04/2021 mammogram, 05/06/2020 mammogram, 04/09/2019 mammogram, and 03/17/2019 mammogram - [facility]. Both breasts are heterogeneously dense, which may obscure small masses (category c / 51-75% glandular tissue). There is a 1.6 cm oval focal asymmetry with a circumscribed margin in the left breast at 1 o'clock posterior depth. This is not significantly changed. No other significant masses, calcifications, or other findings are seen in either breast. IMPRESSION: INCOMPLETE: NEEDS ADDITIONAL IMAGING EVALUATION The 1.6 cm oval focal asymmetry in the left breast most likely is a cyst and is indeterminate. An ultrasound is recommended. This exam was interpreted at Station ID: [id number]. NOTE: For mammograms, a report in lay terms will be sent to the patient. Approximately 15% of breast malignancies will not be visualized mammographically. In the management of a palpable breast mass, a negative mammogram must not discourage biopsy of a clinically suspicious lesion. Electronically Signed By: Hermilo Elliott M.D. jr/:05/16/2022 10:20:46 ACR BI-RADS Category 0: Incomplete 3340F
== END ==
PROVIDERS: PCP Registered Nurse Diabetes Educator; Referring Provider Registered Nurse Diabetes Educator; Visit Provider Registered Nurse Diabetes Educator
DX: R92.8 Other abnormal and inconclusive findings on diagnostic imaging of breast (principal); N60.02 Solitary cyst of left breast
CPT/HCPCS: 76642; 77066; G0279

== ENCOUNTER → 2023-02-05 07:02 | Outpatient (CLI) | payer OTHER, SELFPAY ==
[2021-11-16 11:54] VITALS: BMI 34.5
[2023-02-05 08:37] LABS: Hematocrit 39.9 % (36-46); Hemoglobin 13.5 g/dL (12.0-16.0); Mean Corpuscular HGB Conc 33.9 % (30-36); Mean Corpuscular Hemoglobin 29.9 PG (26-34); Mean Corpuscular Volume 88.2 fL (80-100); Platelet Count 190 X10^3/uL (150-400); Red Blood Cell Count 4.52 X10^6/uL (4.0-5.2); Red Cell Distribution Width 14.5 % (11.6-14.8); White Blood Cell Count 6.6 X10^3/uL (4.5-11.0)
[2023-02-05 09:13] LABS: Alanine Aminotransferase 32 IU/L (<35); Albumin 4.1 g/dL (3.5-5.0); Albumin Globulin Ratio 1.4 (1.0-2.8); Alkaline Phosphatase 84 U/L (38-126); Aspartate Aminotransferase 33 IU/L (14-36); BUN Creatinine Ratio 24.6 (6-22); Bilirubin Total 0.5 mg/dL (0.2-1.3); Blood Urea Nitrogen 16 mg/dL (7-17); Calcium 9.2 mg/dL (8.4-10.2); Carbon Dioxide 26 mmol/L (22-32); Chloride 104 mmol/L (98-107); Cholesterol 174 mg/dL (140-199); Estimated Glomerular Filt Rate > 60 mL/min (>60); Glucose 102 mg/dL (70-100); HDL Cholesterol 56 mg/dL (40-60); HEMOLYSIS < 15 (0-50); LDL Cholesterol Calculated 94 mg/dL (<100); Potassium 4.2 mmol/L (3.4-5.1); Sodium 139 mmol/L (137-145); Total Protein 7.1 g/dL (6.3-8.2); Triglycerides 119 mg/dL (35-150)
[2023-02-05 09:31] LABS: TSH w/ Reflex to FT4 0.17 uIU/mL (0.47-4.68)
[2023-02-05 10:26] LABS: Free T4, Direct Thyroxine 1.29 ng/dL (0.78-2.19)
== END ==
PROVIDERS: PCP Registered Nurse Diabetes Educator; Referring Provider Registered Nurse Diabetes Educator; Visit Provider Registered Nurse Diabetes Educator
DX: E03.9 Hypothyroidism, unspecified (principal); E78.2 Mixed hyperlipidemia; K76.0 Fatty (change of) liver, not elsewhere classified
CPT/HCPCS: 36415; 80053; 80061; 84439; 84443; 85027

== ENCOUNTER → 2023-03-27 17:42 | Outpatient (CLI) | payer OTHER, SELFPAY ==
[2021-11-16 11:54] VITALS: BMI 34.5
[2023-03-27 18:45] LABS: TSH w/ Reflex to FT4 < 0.02 uIU/mL (0.47-4.68)
== END ==
PROVIDERS: PCP Registered Nurse Diabetes Educator; Referring Provider Registered Nurse Diabetes Educator; Visit Provider Registered Nurse Diabetes Educator
DX: E03.9 Hypothyroidism, unspecified (principal)
CPT/HCPCS: 36415; 84439; 84443

== ENCOUNTER → 2023-05-09 07:35 | Outpatient (CLI) | payer OTHER, SELFPAY ==
[2021-11-16 11:54] VITALS: BMI 34.5
== END ==
PROVIDERS: PCP Registered Nurse Diabetes Educator; Referring Provider Registered Nurse Diabetes Educator; Visit Provider Registered Nurse Diabetes Educator
DX: E03.9 Hypothyroidism, unspecified (principal)
CPT/HCPCS: 36415; 84443

== ENCOUNTER 2023-05-13 08:04 | Day surgery (SDC) | payer OTHER, SELFPAY ==
[2021-11-16 11:54] VITALS: BMI 34.5
--- NOTE | 2023-05-13 | PATH_ITS ---
[facility] Accession Number: [id number] No. of containers..01 Tissue . 01 Material submitted: . colon - ASCENDING POLYP . 01 Diagnosis: COLON, ASCENDING, POLYP BIOPSY: TUBULAR ADENOMA TXN 05/23/2023 1448 Local . 01 Electronically signed: . Davey Harris MD, Pathologist NPI- [id number] . 01 Gross description: . ASCENDING POLYP: Received in formalin is 1 fragment(s) of hassan, soft tissue measuring 0.4 x 0.4 x 0.3 cm submitted entirely in 1 cassette(s) /ALLI 05/14/2023 1941 Local . 01 Pathologist provided ICD-10: Z12.11 . 01 CPT . 120221 Specimen Comment: A courtesy copy of this report has been sent to [phone] Performed at: 01 [facility] [address] [place] [address], [place], [place] [id number] MD Christian Stewart MD Phone: [phone]
[2023-05-13] MEDS: LACTATED RINGERS 1,000 ML 42 ML IV (08:15)
[2023-05-13 08:17] VITALS: BP 146/82; PULSE 91; RESP 17; TEMP 36.9; O2SAT 94; BMI 32.0
[2023-05-13 09:53] VITALS: BP 97/67; PULSE 71; RESP 18; TEMP 36.1; O2SAT 98
[2023-05-13 09:57] VITALS: BP 113/66; PULSE 60; RESP 13; O2SAT 99
[2023-05-13 10:02] VITALS: BP 132/78; PULSE 60; RESP 16; O2SAT 100
--- NOTE | 2023-05-13 10:04 | PM.HP.1 ---
History of Present Illness History of Present Illness Date Patient Seen: 05/13/23 Time Patient Seen: 10:04 Chief complaint: Colonoscopy Narrative: Colon cancer screening, last scope 10 year ago. no family history or symptoms PFSH Medical History Abnormal mammogram of left breast Fatty liver disease, nonalcoholic (04/2020) Abnormal abdominal ultrasound (04/2020) Osteoarthritis Preoperative clearance Mixed hyperlipidemia (11/2019) Elevated liver enzymes Rheumatoid arthritis (~2016) Carpal tunnel syndrome (~2016) Hypothyroidism (~1994) Surgical History History of colonoscopy Anesthesia Vaginal delivery History of knee surgery (~11/2007) History of carpal tunnel surgery of right wrist (~03/2017) History of carpal tunnel surgery of left wrist (~02/2017) Family History Father Prostate cancer Hyperlipidemia Mother Diabetes mellitus Hypertension Grandfather History of heart attack Grandfather Cancer Grandmother Cancer Social History household members: spouse Smoking Status: Never smoker second hand exposure: No alcohol intake: current substance use type: does not use Meds Home Medications and Allergies Home Medications Medication Instructions Recorded Confirmed Type omega-3 fatty acids 1,000 mg 2,000 mg PO DAILY 05/12/19 05/13/23 History capsule (Fish Oil Concentrate) cholecalciferol (vitamin D3) 50 50 mcg PO DAILY 12/09/19 05/13/23 History mcg (2,000 unit) capsule zbafgmxa-sgg-[id number]-FA-Ca carb-vit K 1 tab PO DAILY 12/09/19 05/13/23 History 18 mg iron-400 mcg-500 mg tablet (Women's Multivitamin) folic acid 1 mg tablet 1 mg PO DAILY 03/30/20 05/13/23 History golimumab 50 mg/0.5 mL 50 mg SUBCUT QMONTH 01/02/22 05/13/23 History subcutaneous pen injector lutein 20 mg capsule 20 mg PO DAILY 02/12/23 05/13/23 History rosuvastatin 5 mg tablet 5 mg PO DAILY #90 tabs 02/12/23 05/13/23 Rx levothyroxine 100 mcg tablet 100 mcg PO DAILY #60 tabs 04/02/23 05/13/23 Rx Allergies Allergy/AdvReac Type Severity Reaction Status Date / Time No Known Drug Allergies Allergy Verified 05/13/23 08:28 Review of Systems Review of Systems ROS: Yes All systems reviewed with the patient and are negative except as otherwise documented Exam Vital Signs (past 8 hours): - 05/13/23 08:17 05/13/23 09:53 05/13/23 09:57 Temperature 98.4 F 97.0 F L Pulse Rate 91 H 71 60 Respiratory Rate 17 18 13 Blood Pressure 146/82 H 97/67 113/66 Pulse Oximetry 94 98 99 Oxygen Delivery Method Room Air Room Air Room Air Oxygen Delivery Method Room Air Const General: cooperative and healthy appearing Nutritional Appearance: overweight HENMT Head: normocephalic and atraumatic Eyes General: appearance normal, both eyes and all related structures Sclera: sclerae normal Neck Neck: trachea midline Resp Effort & Inspection: normal respiratory effort and able to speak in complete sentences Cardio Rate: regular rate Rhythm: regular rhythm GI Palpation: soft and No tender Skin General: elasticity normal and turgor normal Neuro General: patient alert, patient awake and patient oriented x3 Psych Mental Status: mental status grossly normal Judgment: judgment good Assessment & Plan Assessment & Plan narrative: Colonoscopy for colon cancer screening. Time Spent With Patient Time with patient: less than 30 minutes
[2023-05-13 10:07] VITALS: BP 131/80; PULSE 58; RESP 14; O2SAT 97
[2023-05-13 10:11] VITALS: BP 140/84; PULSE 64; RESP 14; TEMP 36.3; O2SAT 97
--- NOTE | 2023-05-17 12:29 | PM.OP.COLON ---
Operative Date/Time/Diagnoses Date of procedure: 05/13/23 Pre-op diagnosis: Colon cancer screening Post-op diagnosis: same Procedure & Clinicians Study performed: Colonoscopy with anesthesia and cold forceps polypectomy Same procedure as scheduled: Yes Indications: Colon cancer screening Surgeon: Gabriela Rascon Procedure Notes Procedure in detail: Preop diagnosis: Colon cancer screening Postop diagnosis: Same Operative procedure: Colonoscopy with anesthesia and cold forceps polypectomy Surgeon: Adelaide Rascon MD Findings: Small sessile polyp in the ascending colon Procedure: Patient placed in lateral position. Rectal exam performed showing normal tone no masses. Colonoscope was inserted into the rectum and advanced to ileocecal valve with minimal difficulty. Insufflation extraction scope including retroflex had the above findings. Impression: Small sessile polyp in the ascending colon. Plan: Repeat colonoscopy in 5 years unless otherwise indicated by change in clinical condition Findings: polyp(s) Specimen(s): other Complications: none Post-procedure Recommendations: Colonoscopy in 5 years Follow up: as needed Disposition: PACU
== END 2023-05-13 10:27 | disposition home or self-care (01) ==
PROVIDERS: PCP Registered Nurse Diabetes Educator; Visit Provider Surgery
PROC: 0DJD8ZZ Inspection of Lower Intestinal Tract, Via Natural or Artificial Opening Endoscopic (ICD-10-PCS; CPT 45378; principal; 2023-05-13 09:15)
DX: Z12.11 Encounter for screening for malignant neoplasm of colon (principal); D12.2 Benign neoplasm of ascending colon
CPT/HCPCS: 45380; J2704

== ENCOUNTER → 2023-05-17 09:11 | Outpatient (CLI) | payer OTHER, SELFPAY ==
[2021-11-16 11:54] VITALS: BMI 34.5
--- NOTE | 2023-05-17 | DI.MG.S_ITS ---
BILATERAL DIGITAL SCREENING MAMMOGRAM 3D/2D WITH CAD: 05/17/2023 CLINICAL: Routine screening. Family history of breast cancer. Comparison is made to exams dated: 05/16/2022 ultrasound, 05/16/2022 mammogram, 05/04/2021 mammogram, and 05/06/2020 mammogram - [facility]. Both breasts are heterogeneously dense, which may obscure small masses (category c / 51-75% glandular tissue). Current study was also evaluated with a Computer Aided Detection (CAD) system. There is a mole marker on the right breast. No significant masses, calcifications, or other findings are seen in either breast. There has been no significant interval change. IMPRESSION: NEGATIVE There is no mammographic evidence of malignancy. A 1 year screening mammogram is recommended. Based on the Tyrer Cuzick model (a risk assessment model) the patient's lifetime risk is 16.3% and her 10 year risk is 6.5%. According to the ACR, ACS, and NCCN guidelines, an annual breast MRI exam along with mammogram is recommended if the patient's lifetime risk is 20% or greater. This exam was interpreted at Station ID: [id number]. NOTE: For mammograms, a report in lay terms will be sent to the patient. Approximately 15% of breast malignancies will not be visualized mammographically. In the management of a palpable breast mass, a negative mammogram must not discourage biopsy of a clinically suspicious lesion. Electronically Signed By: Aly aranda/magali:05/17/2023 12:59:39 letter sent: Normal Exam ACR BI-RADS Category 1: Negative [id number]
== END ==
PROVIDERS: PCP Registered Nurse Diabetes Educator; Referring Provider Registered Nurse Diabetes Educator; Visit Provider Registered Nurse Diabetes Educator
DX: Z12.31 Encounter for screening mammogram for malignant neoplasm of breast (principal); Z80.3 Family history of malignant neoplasm of breast
CPT/HCPCS: 77063; 77067

== ENCOUNTER → 2024-03-09 09:59 | Outpatient (CLI) | payer OTHER, SELFPAY ==
[2021-11-16 11:54] VITALS: BMI 34.5
--- NOTE | 2024-03-09 | DI.RAD.S_ITS ---
PROCEDURE: XR CHEST 2V INDICATIONS: cough TECHNIQUE: 2 views of the chest were acquired. COMPARISON: None. FINDINGS: Surgical changes and devices: None. Lungs and pleura: Lungs are clear. No pleural effusions or pneumothorax. Mediastinum: Mediastinal contours are normal. Heart size is normal. Bones and chest wall: No suspicious bony abnormalities. Soft tissues appear unremarkable. IMPRESSION: No acute cardiopulmonary abnormality is seen. Dictated by: Jose Roberto Ozuna M.D. on 03/10/2024 at 10:38 Approved by: Jose Roberto Ozuna M.D. on 03/10/2024 at 10:39
== END ==
LOC: RAD 10:00
PROVIDERS: PCP Registered Nurse Diabetes Educator; Referring Provider Physician Assistant Surgical; Visit Provider Physician Assistant Surgical
DX: R05.9 Cough, unspecified (principal)
CPT/HCPCS: 71046

== ENCOUNTER → 2024-03-18 07:36 | Outpatient (CLI) | payer OTHER, SELFPAY ==
[2021-11-16 11:54] VITALS: BMI 34.5
[2024-03-18 08:09] LABS: Hematocrit 40.5 % (36-46); Hemoglobin 13.8 g/dL (12.0-16.0); Mean Corpuscular HGB Conc 33.9 % (30-36); Mean Corpuscular Hemoglobin 31.4 PG (26-34); Mean Corpuscular Volume 92.4 fL (80-100); Platelet Count 216 X10^3/uL (150-400); Red Blood Cell Count 4.39 X10^6/uL (4.0-5.2); Red Cell Distribution Width 13.6 % (11.6-14.8); White Blood Cell Count 5.7 X10^3/uL (4.5-11.0)
[2024-03-18 08:28] LABS: Hemoglobin A1C% w Est Avg Glu 5.8 % (4.0-6.0)
[2024-03-18 08:38] LABS: Alanine Aminotransferase 32 IU/L (<35); Albumin 4.4 g/dL (3.5-5.0); Albumin Globulin Ratio 1.8 (1.0-2.8); Alkaline Phosphatase 77 U/L (38-126); Aspartate Aminotransferase 32 IU/L (14-36); BUN Creatinine Ratio 23.7 (6-22); Bilirubin Total 0.5 mg/dL (0.2-1.3); Blood Urea Nitrogen 18 mg/dL (7-17); Calcium 9.3 mg/dL (8.4-10.2); Carbon Dioxide 27 mmol/L (22-32); Chloride 104 mmol/L (98-107); Cholesterol 163 mg/dL (140-199); Estimated Glomerular Filt Rate > 60 mL/min (>60); Globulin 2.4 g/dL (1.7-4.1); Glucose 106 mg/dL (80-110); HDL Cholesterol 57 mg/dL (40-60); HEMOLYSIS < 15 (0-50); LDL Cholesterol Calculated 82 mg/dL (<100); Potassium 4.2 mmol/L (3.4-5.1); Sodium 138 mmol/L (137-145); Total Protein 6.8 g/dL (6.3-8.2); Triglycerides 122 mg/dL (35-150)
[2024-03-18 08:58] LABS: TSH w/ Reflex to FT4 3.85 uIU/mL (0.47-4.68)
== END ==
PROVIDERS: PCP Registered Nurse Diabetes Educator; Referring Provider Registered Nurse Diabetes Educator; Visit Provider Registered Nurse Diabetes Educator
DX: E03.9 Hypothyroidism, unspecified (principal); E78.2 Mixed hyperlipidemia; R73.01 Impaired fasting glucose
CPT/HCPCS: 36415; 80053; 80061; 83036; 84443; 85027

== ENCOUNTER → 2024-05-22 09:12 | Outpatient (CLI) | payer OTHER, SELFPAY ==
[2021-11-16 11:54] VITALS: BMI 34.5
--- NOTE | 2024-05-22 | DI.MG.S_ITS ---
BILATERAL DIGITAL SCREENING MAMMOGRAM 3D/2D WITH CAD: 05/22/2024 CLINICAL: Routine screening. Family history of breast cancer. Comparison is made to exams dated: 05/17/2023 mammogram, 05/16/2022 mammogram, 05/04/2021 mammogram, 05/06/2020 mammogram, 04/09/2019 mammogram, and 03/17/2019 mammogram - [facility]. The breasts are heterogeneously dense, which may obscure small masses (category c / 51-75% glandular tissue). Current study was also evaluated with a Computer Aided Detection (CAD) system. No significant masses, calcifications, or other findings are seen in either breast. There has been no significant interval change. IMPRESSION: NEGATIVE There is no mammographic evidence of malignancy. A 1 year screening mammogram is recommended. Based on the Tyrer Cuzick model (a risk assessment model) the patient's lifetime risk is 16.0% and her 10 year risk is 6.6%. According to the ACR, ACS, and NCCN guidelines, an annual breast MRI exam along with mammogram is recommended if the patient's lifetime risk is 20% or greater. This exam was interpreted at Station ID: [id number]. NOTE: For mammograms, a report in lay terms will be sent to the patient. Approximately 15% of breast malignancies will not be visualized mammographically. In the management of a palpable breast mass, a negative mammogram must not discourage biopsy of a clinically suspicious lesion. Electronically Signed By: Jenny Woodward M.D., Ph.D. fadi/magali:05/22/2024 16:03:29 letter sent: Normal Exam ACR BI-RADS Category 1: Negative
== END ==
PROVIDERS: PCP Registered Nurse Diabetes Educator; Referring Provider Registered Nurse Diabetes Educator; Visit Provider Registered Nurse Diabetes Educator
DX: Z12.31 Encounter for screening mammogram for malignant neoplasm of breast (principal); Z80.3 Family history of malignant neoplasm of breast; R92.333 Mammographic heterogeneous density, bilateral breasts
CPT/HCPCS: 77063; 77067

== ENCOUNTER → 2025-03-01 11:51 | Outpatient (CLI) | payer OTHER, SELFPAY ==
[2021-11-16 11:54] VITALS: BMI 34.5
--- NOTE | 2025-03-01 11:52 | DI.MG.S_ITS ---
MM screening mammo BI: 03/01/2025. BI-RADS: 1 CLINICAL: 59-year old female for bilateral screening mammogram. Tyrer-Cuzick lifetime risk of 8.3%. No personal or first-degree family history of breast cancer. PRIOR EXAMS: 05/22/2024, 05/17/2023, 05/16/2022, 11/22/2021, 05/04/2021, 10/06/2020, 05/06/2020, 10/15/2019, 04/09/2019, 03/17/2019. MAMMOGRAPHY TECHNIQUE: 2D and 3D (tomosynthesis) digital mammographic views obtained, with additional images as needed for full coverage. Current study was also evaluated with a Computer Aided Detection (CAD) system. DENSITY C. The breasts are heterogeneously dense, which may obscure small masses. MAMMOGRAPHY FINDINGS Bilateral: No suspicious mass, asymmetry, microcalcification, or other abnormality seen. IMPRESSION: * No evidence of malignancy. RECOMMENDATIONS Bilateral * Annual screening mammography. OVERALL ASSESSMENT CATEGORY BI-RADS-1: Negative. The [employer] recommends annual screening mammography beginning at age 40 for women with average risk of breast cancer. ELECTRONICALLY SIGNED: Ghada Pizarro M.D. on 03/01/2025 at 02:24:46 PM PT Interpreting Station ID: [id number]
== END ==
LOC: MAMMO 11:51
PROVIDERS: PCP Registered Nurse Diabetes Educator; Referring Provider Registered Nurse Diabetes Educator; Visit Provider Registered Nurse Diabetes Educator
DX: Z12.31 Encounter for screening mammogram for malignant neoplasm of breast (principal); R92.333 Mammographic heterogeneous density, bilateral breasts
CPT/HCPCS: 77063; 77067